=== PATIENT | female | born 1995 | race Caucasian/White ===

== ENCOUNTER → 2016-08-01 | Outpatient (CLI) | payer BC ==
[~2016-08-01] MED LIST: ANAPROX DS550 MG PO; CYCLOBENZAPRINE10 MG PO; OMEPRAZOLE20 M2 PO
== END | disposition home or self-care (01) ==
LOC: US 09:15
DX: K76.0 Fatty (change of) liver, not elsewhere classified (principal); R10.13 Epigastric pain; R11.2 Nausea with vomiting, unspecified; R10.84 Generalized abdominal pain

== ENCOUNTER 2017-09-22 19:33 | Inpatient (IN) | payer BC ==
[~2017-09-22] VITALS: Ht 162.5 cm; Wt 128.4 kg
[2017-09-22 19:36] VITALS: BP 136/73
[2017-09-22 20:35] LABS: BASO % 0.2 % (0.0-1.0); EOS % 0.4 % (1.0-4.0); HEMATOCRIT 39.8 % (37.0-47.0); HEMOGLOBIN 13.3 g/dl (12.0-16.0); LYMPH # 0.3 10*3/uL (1.3-4.4); LYMPH % 5.8 % (27.0-41.0); MEAN CELL VOLUME 87.5 fl (81.0-99.0); MEAN CORPUSCULAR HGB 29.2 pg (27.0-31.0); MEAN CORPUSCULAR HGB CONC 33.4 g/dl (33.0-37.0); MEAN PLATELET VOLUME 10.6 fl (9.6-12.3); MONO # 0.4 10*3/uL (0.1-1.0); NEUT # 4.9 10*3/uL (2.3-7.9); NEUT % 86.4 % (47.0-73.0); PLATELET COUNT AUTOMATED 153 10*3/uL (130-400); RED BLOOD COUNT 4.55 10*6/uL (4.10-5.10); RED CELL DISTRI WIDTH 11.9 % (0-14.5); WHITE BLOOD COUNT 5.7 10*3/uL (4.8-10.8)
[2017-09-22 20:37] VITALS: BP 120/67
[2017-09-22 20:50] LABS: ALBUMIN 3.7 gm/dl (3.1-4.5); ALKALINE PHOSPHATASE 79 U/L (45-117); BUN 13 mg/dl (7-24); CHLORIDE 107 mmol/L (98-107); CREATININE 0.68 mg/dL (0.55-1.02); POTASSIUM 3.4 mmol/L (3.5-5.1); SGOT/AST 15 IU/L (3-35); SGPT/ALT 23 U/L (12-78); SODIUM 139 mmol/L (136-145); TOTAL PROTEIN 6.9 gm/dL (6.4-8.2)
[2017-09-22 21:32] LABS: BILIRUBIN 1+ (NEGATIVE); BLOOD 3+ (NEGATIVE); CLARITY CLOUDY (CLEAR); COLOR YELLOW (YELLOW); GLUCOSE NEGATIVE (NEGATIVE); KETONE TRACE (NEGATIVE); LEUKO ESTERASE TRACE (NEGATIVE); NITRITE NEGATIVE (NEGATIVE); PH 5.5 (5.0-9.0); SPECIFIC GRAVITY >= 1.030 (1.005-1.030)
[2017-09-22 21:38] LABS: BACTERIA 3+; EPITHELIAL CELLS 30-35; RBC TNTC rbc/hpf (0-2); WBC TNTC wbc/hpf (0-5)
[2017-09-22 22:30] VITALS: BP 112/64
[2017-09-23 00:40] VITALS: BP 105/57
[2017-09-23 06:10] LABS: ALBUMIN 3.1 gm/dl (3.1-4.5); BUN 13 mg/dl (7-24); CHLORIDE 109 mmol/L (98-107); CHOLESTEROL 117 mg/dL (<200); CREATININE 0.79 mg/dL (0.55-1.02); PHOSPHOROUS 2.8 mg/dL (2.5-4.9); POTASSIUM 3.7 mmol/L (3.5-5.1); SGOT/AST 16 IU/L (3-35); SGPT/ALT 18 U/L (12-78); SODIUM 143 mmol/L (136-145); TOTAL PROTEIN 5.9 gm/dL (6.4-8.2); TRIGLYCERIDES 87 mg/dl (<150); VLDL CHOLESTEROL 17 mg/dL (6-40)
[2017-09-23 06:17] LABS: ALKALINE PHOSPHATASE 67 U/L (45-117); HDL CHOLESTEROL 29 mg/dl (40-60); LDL CHOLESTEROL 71 mg/dL (9-159)
[2017-09-23 06:29] LABS: BASO % 0.3 % (0.0-1.0); EOS % 0.6 % (1.0-4.0); HEMATOCRIT 35.7 % (37.0-47.0); HEMOGLOBIN 11.4 g/dl (12.0-16.0); LYMPH # 0.4 10*3/uL (1.3-4.4); LYMPH % 10.9 % (27.0-41.0); MEAN CELL VOLUME 91.1 fl (81.0-99.0); MEAN CORPUSCULAR HGB 29.1 pg (27.0-31.0); MEAN CORPUSCULAR HGB CONC 31.9 g/dl (33.0-37.0); MEAN PLATELET VOLUME 11.3 fl (9.6-12.3); MONO # 0.4 10*3/uL (0.1-1.0); NEUT # 2.7 10*3/uL (2.3-7.9); NEUT % 75.6 % (47.0-73.0); PLATELET COUNT AUTOMATED 145 10*3/uL (130-400); RED BLOOD COUNT 3.92 10*6/uL (4.10-5.10); RED CELL DISTRI WIDTH 12.3 % (0-14.5); WHITE BLOOD COUNT 3.5 10*3/uL (4.8-10.8)
[2017-09-23 06:42] LABS: INTERNATIONAL NORM RATIO 1.1 (2.0-3.5)
[2017-09-23 07:53] LABS: VITAMIN D, 25-HYDROXY 21.2 ng/mL (30-100)
[2017-09-23 08:00] VITALS: BP 110/67
[2017-09-23 12:00] VITALS: BP 115/60
[2017-09-23 16:00] VITALS: BP 133/79
[2017-09-23] MEDS ORDERED: VITAMIN D-32000 UNIT PO (16:59)
[2017-09-23] MEDS ORDERED: SEPTDS PO (17:06)
[2017-09-23] MEDS ORDERED: ZOFRAN ODT4 MG SL (17:09)
== END 2017-09-23 18:46 | disposition home or self-care (01) | DRG 872 ==
LOC: ED 19:33 → EDHOLD 23:04 → 4E 23:27
PROVIDERS: Internal Medicine Hospice and Palliative Medicine; Nurse Practitioner Family
DX: A41.9 Sepsis, unspecified organism (principal); K81.0 Acute cholecystitis; N39.0 Urinary tract infection, site not specified; K21.9 Gastro-esophageal reflux disease without esophagitis; R31.9 Hematuria, unspecified; E87.6 Hypokalemia; E83.51 Hypocalcemia; R73.9 Hyperglycemia, unspecified; R91.1 Solitary pulmonary nodule; A08.4 Viral intestinal infection, unspecified; Z79.899 Other long term (current) drug therapy; Z83.3 Family history of diabetes mellitus; Z81.8 Family history of other mental and behavioral disorders; Z84.89 Family history of other specified conditions

== ENCOUNTER 2021-10-12 10:21 | Emergency (ER) | payer SELFPAY ==
[~2021-10-12] VITALS: Wt 127.0 kg
[~2021-10-12 10:21] MED LIST changes: +SEPTDS PO; +VITAMIN D-32000 UNIT PO; +ZOFRAN ODT4 MG SL
[2021-10-12 10:30] VITALS: BP 149/81
[2021-10-12 11:15] LABS: BILIRUBIN Negative (Negative); BLOOD Trace-Lysed (Negative); CLARITY Cloudy (Clear); COLOR Yellow (Yellow); GLUCOSE Negative (Negative); KETONE Negative (Negative); LEUKO ESTERASE 2+ (Negative); NITRITE Negative (Negative); PH 5.5 (4.5-8.0); SPECIFIC GRAVITY >= 1.030 (1.001-1.030)
[2021-10-12 11:28] LABS: BACTERIA 4+; CALCIUM OXALATE CRYSTALS 2+; EPITHELIAL CELLS 21-30; RBC 16-20 rbc/hpf (0-2); WBC TNTC wbc/hpf (0-5)
[2021-10-12] MEDS ORDERED: MACROBID100 M1 PO (11:31)
== END 2021-10-12 11:50 | disposition home or self-care (01) ==
LOC: ED 10:21
PROVIDERS: Nurse Practitioner Family
DX: N39.0 Urinary tract infection, site not specified (principal); Z79.899 Other long term (current) drug therapy

== ENCOUNTER 2021-10-13 20:40 | Emergency (ER) | payer SELFPAY ==
[~2021-10-13] VITALS: Ht 160 cm; Wt 127.0 kg
[~2021-10-13 20:40] MED LIST changes: +MACROBID100 M1 PO
[2021-10-13 20:54] VITALS: BP 142/80
== END 2021-10-13 21:15 | disposition home or self-care (01) ==
LOC: ED 20:40
DX: B37.9 Candidiasis, unspecified (principal)

== ENCOUNTER 2021-10-15 10:03 | Emergency (ER) | payer SELFPAY ==
[~2021-10-15] VITALS: Ht 160 cm; Wt 127.0 kg
[2021-10-15 10:10] VITALS: BP 147/66
[2021-10-15] MEDS ORDERED: FLUCONAZOLE100 MG PO (11:02)
[2021-10-15 11:31] LABS: BILIRUBIN Negative (Negative); BLOOD Trace-Lysed (Negative); CLARITY Cloudy (Clear); COLOR Yellow (Yellow); GLUCOSE Negative (Negative); KETONE Trace (Negative); LEUKO ESTERASE 3+ (Negative); NITRITE Negative (Negative); SPECIFIC GRAVITY 1.015 (1.001-1.030)
[2021-10-15 11:47] LABS: BACTERIA TRACE; WBC 21-30 wbc/hpf (0-5)
[2021-10-15] MEDS ORDERED: DOXYCYCLINE HY100 M3 PO (12:12)
[2021-10-15] MEDS ORDERED: ACYCLOVIR400 MG PO (12:12)
== END 2021-10-15 12:16 | disposition home or self-care (01) ==
LOC: ED 10:03
PROVIDERS: Family Medicine
DX: N39.0 Urinary tract infection, site not specified (principal); B00.9 Herpesviral infection, unspecified